=== PATIENT | male | born 1995 | race Hispanic/Latino ===

== ENCOUNTER 2018-10-26 18:18 | Emergency (ER) | payer OTHER, SELFPAY ==
[2018-10-26] MEDS ORDERED: ACETAMINOPHEN 325 MG TABLET ONE (19:03)
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
--- NOTE | 2018-10-27 12:13 | RAD REPORT ---
EXAM DESCRIPTION: CT - Head C Spine Mpr Wo Con - 10/27/2018 1:20 am CLINICAL HISTORY: 23 years Male PAIN TECHNIQUE: Contiguous axial CT images obtained through the brain and cervical spine without IV contr ast. Coronal and sagittal reformatted images also provided. This CT exam was performed according to our departmental dose-optimization program, which includes on e or more of the following dose reduction techniques: automated exposure control, adjustment of the m A and/or kV according to patient size, and/or use of iterative reconstruction technique. COMPARISON: No prior exams provided for comparison. FINDINGS: There is no acute skull fracture, intracranial hemorrhage, extraaxial collection, or acute transcortical infarction. The ventricles are normal in size and contour without mass effect or midline shift. The visualized paranasal sinuses, tympanomastoid cavities, and orbits are normal. There is no acute cervical fracture or spondylolisthesis. Vertebral body and disc space heights are preserved without aggressive osseous lesion. There is no ce ntral canal stenosis at any cervical level. Mild uncovertebral arthrosis contributes to slight left-s ided neural foraminal narrowing at multiple levels. No prevertebral or paraspinal soft tissue swellin g. The lung apices are clear. IMPRESSION: No acute intracranial or cervical spine injury. Electronically signed by: Teresita Veloz MD 10/26/2018 7:30 PM CDT Due to temporary technical issues with the PACS/Fluency reporting system, reports are being signed by the in house radiologist as a courtesy to ensure prompt reporting. The interpreting radiologist is f ully responsible for the content of the report.
== END 2018-10-26 20:24 | disposition home or self-care (01) ==
LOC: ER 18:18
DX: E86.0 Dehydration (principal)
CPT/HCPCS: 70450; 72125; 99284